=== PATIENT | male | born 1950 | race Caucasian/White ===

== ENCOUNTER 2020-11-16 09:04 | Outpatient (CLI) | payer MEDICARE, SELFPAY ==
--- NOTE | ~2020-11-16 | CT_ITS ---
EXAMINATION: CT diagnostic chest wo con DATE: 11/16/2020 09:22 INDICATION: Prostate cancer, prior smoker TECHNIQUE: Computed tomography (CT) of the chest was performed without intravenous contrast. The dose -length product (DLP) was 338.13 mGy-cm. Automated exposure control and iterative reconstruction tech nique were employed. COMPARISON: None FINDINGS: There is a 6 mm nodule in the right lower lobe on image 68. A 2 mm nodules present in the r ight lower lobe adjacent to the major fissure on image 63. There is a 4 mm nodule in the left lower l obe adjacent to the major fissure on image 49. No focal airspace opacities are identified. There is n o pleural effusion or pneumothorax. There is mild emphysema. Minimal groundglass opacities are presen t in the right upper lobe. No pathologically enlarged thoracic lymph nodes are identified. The heart size is normal. Calcified atherosclerosis is noted. There is a sclerotic lesion in the posterolateral aspect of the right seventh rib. 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 There are h ealed fractures of the left seventh, ninth, and 10th ribs.. IMPRESSION: 1. Right lower lobe nodules which may be, infectious/inflammatory versus metastatic disease. 2. Indeterminate sclerotic right seventh rib lesion. Reviewed, dictated and finalized at location A. NG TACKER IMPRESSION: 1. Right lower lobe nodules which may be, infectious/inflammatory versus metast atic disease. 2. Indeterminate sclerotic right seventh rib lesion.
== END 2020-11-16 09:05 | disposition home or self-care (01) ==
LOC: ANHIMG 09:06
PROVIDERS: PCP Internal Medicine; Visit Provider Urology
DX: C61 Malignant neoplasm of prostate (principal); R91.8 Other nonspecific abnormal finding of lung field
CPT/HCPCS: 71250

== ENCOUNTER → 2022-11-19 12:05 | Outpatient (CLI) | payer MEDICARE, SELFPAY ==
--- NOTE | ~2022-11-19 | DEXA_ITS ---
Bone Density Report Name: CARISSA HERNANDEZ Age: 72 Sex: Male Ethnicity: White Date of : 1950 Indication: screening for osteoporosis; height loss; cancer; Referring Provider: ERASTO TERAN Study: Bone densitometry was performed. Exam Date: November 19, 2022 Accession number: [id number] Bone Density: Region BMD T-score Z-score Classification AP Spine (L1, L2) 1.030 -0.2 0.7 Normal Femoral Neck (Left) 0.824 -0.8 0.5 Normal Total Hip (Left) 1.121 0.6 1.3 Normal Femoral Neck (Right) 0.770 -1.2 0.1 Osteopenia Total Hip (Right) 1.101 0.5 1.2 Normal Total Hip Mean 1.111 0.6 1.3 Normal World Health Organization criteria for BMD impression classify patients as: Normal (T-score at or above -1.0), Osteopenia (T-score between -1.0 and -2.5), or Osteoporosis (T-score at or below -2.5). 10-year Fracture Risk(1): Major Osteoporotic Fracture 5.4% Hip Fracture 1.1% Reported Risk Factors: [place] (), Neck BMD=0.770, BMI=31.4 (1) FRAX(R) Version 3.08. Fracture probability calculated for an untreated patient. Fracture probability may be lower if the patient has received treatment. Clinical Information Provided by Patient: Has used the following medications: Calcium, MTV Has the following medical conditions: Cancer, Prostate ca -2011 pt takes Xtandi medication Patient maximum height was 72.0 No regular weight bearing exercise Drinks caffeinated beverages Impression: The patient has low bone mass, based on the Right Femoral Neck T-score. The patient has an estimated ten-year risk of hip fracture of 1.1% and an estimated ten-year risk of major fracture of 5.4%, based on the WHO FRAX algorithm. Discussion: BONE DENSITY IS LOW AT ONE OR MORE SKELETAL SITES. This patient's lowest T-score is low at one or more skeletal sites. It meets the World Health Organization's (WHO) criteria for ?low bone mass? (T-score between -1.0 and -2.5). The patient's 10-year risk of fracture as calculated by FRAX is less than the threshold where pharmacological therapy is recommended by the National Osteoporosis Foundation (NOF). However, all treatment decisions require clinical judgment and consideration of individual patient factors, including patient preferences, comorbidities, previous drug use, risk factors not captured in the FRAX model (e.g., frailty, falls, vitamin D deficiency, increased bone turnover, interval significant decline in bone density) and possible under or overestimation of fracture risk by FRAX. The patient should follow a healthful lifestyle (good nutrition with adequate calcium and vitamin D, and appropriate weight-bearing exercise). Follow-Up: Consider repeating this study in 2 to 3 years to reassess this patient's status, or sooner if there is some new clinical indication. Reported by: MARGARITO
== END ==
PROVIDERS: PCP Internal Medicine; Visit Provider Nurse Practitioner Adult Health
DX: M85.88 Other specified disorders of bone density and structure, other site (principal); M85.851 Other specified disorders of bone density and structure, right thigh
CPT/HCPCS: 77080

== ENCOUNTER 2022-12-29 01:06 | Day surgery (SDC) | payer MEDICARE, SELFPAY ==
[2022-12-19 10:59] VITALS: BMI 29.3
--- NOTE | 2022-12-27 10:48 | PM.HPGS ---
History of Present Illness History of Present Illness Consent: Risks, benefits, and alternatives have been discussed and questions answered. Patient agrees to proceed with procedure. Chief complaint: other fecal abnormalities, hx of colon polyps Narrative: Juan R John is a 72 year old male Who was referred for colon cancer screening. His last colonoscopy was 14 years ago. He did have a Cologuard test which was negative just over 3 years ago. A more recent 1 was positive. Review of Systems Review of Systems: All systems reviewed & are unremarkable except as noted in HPI and below PMFSH Past Medical History Medical History CAD (coronary artery disease) History of heart attack 2010 History of prostate cancer Hyperlipidemia Surgical History Surgical History History of prostatectomy Family History Family History Father Cerebrovascular accident Acute myocardial infarction Mother Family history of malignant neoplasm Social History Social History Smoking status: Former smoker Tobacco type: cigarettes Alcohol intake: current Drinks per week: 6 Substance use type: does not use Living arrangements: with family Spiritual care concerns: No Meds Home Medications and Allergies Home Medications Medication Instructions Recorded Confirmed Type alendronate 70 mg tablet 70 mg PO WEEKLY 12/19/22 12/29/22 History aspirin 81 mg tablet 81 mg PO DAILY 12/19/22 12/29/22 History atorvastatin 80 mg tablet 80 mg PO HS 12/19/22 12/29/22 History calcium 500 mg tablet 500 mg PO DAILY 12/19/22 12/29/22 History enzalutamide 40 mg tablet (Xtandi) 80 mg PO DAILY 12/19/22 12/29/22 History ezetimibe 10 mg tablet 10 mg PO DAILY 12/19/22 12/29/22 History ferrous sulfate 325 mg (65 mg 325 mg PO DAILY 12/19/22 12/29/22 History iron) tablet magnesium 500 mg tablet 500 mg PO DAILY 12/19/22 12/29/22 History multivitamin with minerals-folic 1 tablet PO DAILY 12/19/22 12/29/22 History acid 0.4 mg tablet pramipexole 1 mg tablet 1 mg PO HS 12/19/22 12/29/22 History Allergies Allergy/AdvReac Type Severity Reaction Status Date / Time No Known Allergies Allergy Verified 12/29/22 10:09 Exam Const: General: alert Orientation/consciousness: patient oriented x3 Resp: Auscultation: clear to auscultation bilaterally Cardio: Rhythm: regular rhythm GI: GI Palp: Yes Soft to palpation and No Tenderness to palpation present (GI) Neuro: General: patient oriented x3 Assessment and Plan Assessment and plan (1) Colon cancer screening: Code(s): Z12.11 - Encounter for screening for malignant neoplasm of colon Status: Acute Assessment and Plan: Colonoscopy with possible biopsy or polypectomy or cautery or injection of substances.
--- NOTE | 2022-12-29 07:18 | P.PNAN_ITS ---
Anes - Initial Pre Proc Eval Procedure: Operation Date: 12/29/22 11:30 Proposed Procedures p Colonoscopy - Spkie Ramirez MD Date/Time: 12/29/22 07:18 Surgeon: Spike Ramirez MD Pre Op Diagnosis: other fecal abnormalities, hx of colon polyps Patient Data Age: 72 Gender: M Height: 1.8 m Weight: 95.5 kg Allergies Allergy/AdvReac Type Severity Reaction Status Date / Time No Known Allergies Allergy Verified 12/29/22 10:09 Home Medications Medication Instructions Recorded Confirmed Type alendronate 70 mg tablet 70 mg PO WEEKLY 12/19/22 12/29/22 History aspirin 81 mg tablet 81 mg PO DAILY 12/19/22 12/29/22 History atorvastatin 80 mg tablet 80 mg PO HS 12/19/22 12/29/22 History calcium 500 mg tablet 500 mg PO DAILY 12/19/22 12/29/22 History enzalutamide 40 mg tablet (Xtandi) 80 mg PO DAILY 12/19/22 12/29/22 History ezetimibe 10 mg tablet 10 mg PO DAILY 12/19/22 12/29/22 History ferrous sulfate 325 mg (65 mg 325 mg PO DAILY 12/19/22 12/29/22 History iron) tablet magnesium 500 mg tablet 500 mg PO DAILY 12/19/22 12/29/22 History multivitamin with minerals-folic 1 tablet PO DAILY 12/19/22 12/29/22 History acid 0.4 mg tablet pramipexole 1 mg tablet 1 mg PO HS 12/19/22 12/29/22 History Patient hx anesthesia problems: none Family hx anesthesia problems: none Results Review: All pre-operative results and documents have been reviewed as part of the pre- operative evaluation. [facility] Past Medical History Medical History (Updated 12/29/22 @ 07:19 by Parveen Lincoln DO) CAD (coronary artery disease) History of heart attack 2010 History of prostate cancer Hyperlipidemia Surgical History Surgical History (Updated 12/29/22 @ 07:19 by Parveen Lincoln DO) History of prostatectomy Family History Family History (Updated 05/04/14 @ 07:13 by DOCTOR UNKNOWN) Father Cerebrovascular accident Acute myocardial infarction Mother Family history of malignant neoplasm Social History Social History Smoking status: Former smoker Tobacco type: cigarettes Alcohol intake: current Drinks per week: 6 Substance use type: does not use Living arrangements: with family Spiritual care concerns: No Anes - Eval Final PreProcedure Day of Procedure 12/29/22 07:18 Patient weight: overweight Heart: regular rate and rhythm Lungs: clear to auscultation Airway: Mallampati scale class II Neurological: alert and oriented Last oral intake: >/= 8 hours ASA classification: III Emergent: no Anesthetic plan: proceed Anesthesia type and monitoring: general GIVS and standard monitoring Results Review: All pre-operative results and documents have been reviewed as part of the pre- operative evaluation. Informed Consent: The patient's anesthetic plan and its attendant risks and benefits were discussed with the patient/family/POA. Questions were solicited and answers provided to the satisfaction of the patient/family/POA.
[2022-12-29 10:12] VITALS: BP 141/78; PULSE 64; RESP 18; TEMP 35.9; O2SAT 99
[2022-12-29] MEDS: LACTATED RINGERS 1,000 ML 150 ML IV CONT (10:25)
[2022-12-29 11:33] VITALS: BP 94/60; PULSE 58; RESP 25; O2SAT 98
[2022-12-29 11:43] VITALS: BP 108/73; PULSE 62; RESP 13; O2SAT 100
[2022-12-29 11:53] VITALS: BP 131/78; PULSE 57; RESP 20; O2SAT 100
== END 2022-12-29 12:12 | disposition home or self-care (01) ==
PROVIDERS: PCP Internal Medicine; Visit Provider Internal Medicine Gastroenterology
PROC: 0DJD8ZZ Inspection of Lower Intestinal Tract, Via Natural or Artificial Opening Endoscopic (ICD-10-PCS; CPT 45378; principal; 2022-12-29 11:30)
DX: Z12.11 Encounter for screening for malignant neoplasm of colon (principal); K57.30 Diverticulosis of large intestine without perforation or abscess without bleeding; R19.5 Other fecal abnormalities; Z86.010 Personal history of colon polyps; I25.10 Atherosclerotic heart disease of native coronary artery without angina pectoris; I25.2 Old myocardial infarction; E78.5 Hyperlipidemia, unspecified; Z85.46 Personal history of malignant neoplasm of prostate; Z87.891 Personal history of nicotine dependence; Z79.82 Long term (current) use of aspirin
CPT/HCPCS: G0105; J2704; J7120

== ENCOUNTER 2023-03-23 10:52 | Outpatient (CLI) | payer MEDICARE, SELFPAY ==
--- NOTE | ~2023-03-23 | PE_ITS ---
EXAMINATION: PET_PETPSMAST_PT DATE: 03/23/2023 13:19 INDICATION: Prostate cancer. TECHNIQUE: 9.128 mCi of piflufolastat F-18 was administered intravenously. Low dose computed tomograp hy (CT) images were acquired from the base of the brain to the proximal thighs for attenuation correc tion and anatomic localization. Automated exposure control was employed. Dose-length product (DLP) wa s 818 mGy-cm. Positron emission tomography (PET) images were acquired in the same distribution. COMPARISON: CT abdomen and pelvis 03/01/2012, chest CT 11/16/2020 FINDINGS: Head/neck: There are no pathologically enlarged lymph nodes. Chest: There is no pneumonia or pleural effusion. Cardiomegaly is noted. No pericardial effusion. The re are no pathologically enlarged lymph nodes. There are old left rib fractures. Abdomen/pelvis/proximal thighs: The liver, gallbladder, spleen, pancreas, adrenal glands, and kidneys are normal. There is calcified atherosclerosis of the aorta and many of the other arteries. There is a right inguinal hernia containing fat. There are changes of left inguinal hernia repair. There is d iverticulosis of the colon without evidence of diverticulitis. There are no dilated loops of bowel. T he appendix is normal. There are no pathologically enlarged lymph nodes. There is no free intraperito vincent fluid. There are changes of prostatectomy. IMPRESSION: 1. No evidence of metastatic disease. Reviewed, dictated and finalized at location A.
== END 2023-03-23 10:53 | disposition home or self-care (01) ==
PROVIDERS: PCP Internal Medicine; Visit Provider Urology
DX: C61 Malignant neoplasm of prostate (principal)
CPT/HCPCS: 78815; A9595

== ENCOUNTER 2023-10-01 09:28 | Emergency (ER) | payer MEDICARE, SELFPAY ==
--- NOTE | ~2023-10-01 | CT_ITS ---
EXAMINATION: CTA BRAIN/CAROTID DATE: 10/01/2023 11:22 INDICATION: Dizziness TECHNIQUE: Computed tomographic angiography (CTA) of the head and neck was performed with 100 mL Omni paque-350 intravenous contrast. Multiplanar reconstructions and maximum intensity projection 3D-recon structions of the carotid arteries and of the intracranial arteries were created by the technologist on a separate workstation. Automated exposure control and iterative reconstruction technique were emp loyed.The dose-length product was 1194.44 mGy-cm. COMPARISON: Head CT dated 10/01/2023 FINDINGS: Carotid arteries: Aortic arch is normal in caliber with small amount of nonhemodynamically significant atherosclerotic plaque which extends into the proximal left subclavian artery. There is a small amount of atheroscler otic plaque with 0% stenosis of the right carotid bulb relative to normal distal artery lumen diamete r (NASCET criteria). There is minimal atherosclerotic plaque with 0% stenosis of the left carotid bul b relative to normal distal artery lumen diameter. Bilateral vertebral arteries are codominant with s mall amounts of nonhemodynamically significant atherosclerotic plaque at the origins of both the left and right vertebral arteries. The upper lungs are clear. Cervical soft tissues and visualized superi or mediastinum are unremarkable. Severe cervical spondylosis. Intracranial arteries Both vertebral arteries are codominant. There is atherosclerotic plaque without hemodynamically signi ficant stenosis at the bilateral intracranial vertebral arteries and the bilateral carotid siphons. T here is no hemodynamically significant stenosis in the vertebral, basilar and internal carotid arteri es. There are no aneurysms identified. Both A1 and P1 segments are patent. Cerebral arterial arbori zation appears symmetric. No abnormally enhancing brain lesions identified. IMPRESSION: 1. Small amount of atherosclerotic plaque with 0% stenosis of the right and left carotid bulbs relati ve to normal distal artery lumen diameter (NASCET criteria). 2. Unremarkable cerebral CT angiogram with small amounts of nonhemodynamically significant atheroscle rotic plaque at the bilateral carotid siphons and vertebral arteries. Reviewed, dictated and finalized at location A. NT TECHNICAL SUPPORT ASSOCIATE IMPRESSION: 1. Small amount of atherosclerotic plaque with 0% stenosis of the right and lef t carotid bulbs relative to normal distal artery lumen diameter (NASCET criteri a). 2. Unremarkable cerebral CT angiogram with small amounts of nonhemodynamically significant atherosclerotic plaque at the bilateral carotid siphons and vertebr al arteries.
--- NOTE | ~2023-10-01 | XR_ITS ---
Clinical Indication: Dizziness AP and lateral views of the chest: Comparison: 03/01/2012 Findings: The lungs are clear, without evidence of focal consolidation or pleural effusion. Cardiome diastinal silhouette is within normal limits. Bones and soft tissues are unremarkable. Impression: Normal chest. Reviewed, dictated and finalized at [facility]. CUTTER Impression: Normal chest.
--- NOTE | ~2023-10-01 | CT_ITS ---
EXAMINATION: CT brain wo con DATE: 10/01/2023 09:48 INDICATION: Dizziness TECHNIQUE: Computed tomography (CT) of the head was performed without intravenous contrast. Sagittal and coronal reconstructions were performed. The mA was adjusted according to patient size. Iterative reconstruction technique was employed. The dose-length product was 605.33 mGy-cm. COMPARISON: None FINDINGS: No acute intracranial hemorrhage, acute infarction or abnormal extra axial fluid collection. Symmetri c prominence of the sulci and and subarachnoid spaces overlying the convexities consistent with mild age-appropriate diffuse cerebral volume loss. Ventricles are normal and symmetric. No mass/mass effe ct. Changes of bilateral intraocular lens replacement. Mild mucosal thickening in the ethmoid sinuses . The orbits and mastoid air cells are normal. Intracranial calcified cerebral atherosclerosis is not ed. IMPRESSION: 1. Normal aging brain. No acute intracranial process. Reviewed, dictated and finalized at location A. ESTATE UTILIZATION OFFICER
[2023-10-01 09:33] VITALS: BP 157/76; PULSE 61; RESP 20; TEMP 36.4; O2SAT 100
--- NOTE | 2023-10-01 09:38 | ECG_ITS ---
Measurements Intervals Prospect Rate: 58 P: 43 SC: 162 QRS: 28 QRSD: 105 T: 27 QT: 444 QTc: 438 Interpretive Statements SINUS BRADYCARDIA BASELINE ARTIFACT- V3 BORDERLINE ECG NO PREVIOUS ECG AVAILABLE FOR COMPARISON Electronically Signed On 10-01-2023 10:34:07 DEVELOPMENT SCIENTIST by Zachary Reese D.O.
[2023-10-01 10:07] LABS: Basophils Absolute Auto 0.1 K/mm3 (0.0-0.1); Basophils Percent Auto 1.2 % (0.2-1.2); Eosinophils Absolute Auto 0.3 K/mm3 (0-0.3); Eosinophils Percent Auto 4.9 % (0-4.4); Hematocrit 41.1 % (42.0-52.0); Hemoglobin 13.3 g/dL (14.0-18.0); Immature Granulocyte Absolute 0.02 K/mm3 (0.00-0.031); Immature Granulocyte Percent A 0.3 % (0-0.5); Lymphocytes Absolute Auto 1.78 K/mm3 (0.9-3.2); Lymphocytes Percent Auto 30.2 % (18.3-44.2); Mean Corpuscular HGB Conc 32.4 g/dl (32-36); Mean Corpuscular Hemoglobin 30.8 pg (26-34); Mean Corpuscular Volume 95.1 fl (80-100); Mean Platelet Volume 8.6 fl (7.4-10.4); Monocytes Absolute Auto 0.4 K/mm3 (0.1-0.6); Monocytes Percent Auto 7.1 % (2.6-8.5); Neutrophils Absolute Auto 3.3 K/mm3 (1.3-6.7); Neutrophils Percent Auto 56.3 % (45.5-73.1); Platelet Count Result 203 k/mm3 (150-375); Red Blood Count 4.32 M/mm3 (4.6-6.20); Red Cell Distribution Width 13.2 % (11.5-14.5); White Blood Count 5.9 K/mm3 (4.5-10.0)
--- NOTE | 2023-10-01 10:09 | ED.DIZZY ---
HPI - Dizziness General Chief Complaint: Dizziness Stated Complaint: dizzy x 1 hour Time Seen by Provider: 10/01/23 09:38 Source: patient Mode of arrival: wheelchair Limitations: no limitations History of Present Illness HPI Narrative: This is a 73-year-old male that presents to the emergency department for dizziness. Ongoing over the last couple of hours. Reports feeling lightheaded and off balance. Reports some nausea. Denies fever, vision changes, vomiting, chest pain, shortness of breath, palpitations, weakness, or numbness. Related Data Home Medications Medication Instructions Recorded Confirmed alendronate 70 mg tablet 70 mg PO WEEKLY 12/19/22 12/29/22 aspirin 81 mg tablet 81 mg PO DAILY 12/19/22 12/29/22 atorvastatin 80 mg tablet 80 mg PO HS 12/19/22 12/29/22 calcium 500 mg tablet 500 mg PO DAILY 12/19/22 12/29/22 enzalutamide 40 mg tablet (Xtandi) 80 mg PO DAILY 12/19/22 12/29/22 ezetimibe 10 mg tablet 10 mg PO DAILY 12/19/22 12/29/22 ferrous sulfate 325 mg (65 mg 325 mg PO DAILY 12/19/22 12/29/22 iron) tablet magnesium 500 mg tablet 500 mg PO DAILY 12/19/22 12/29/22 multivitamin with minerals-folic 1 tablet PO DAILY 12/19/22 12/29/22 acid 0.4 mg tablet pramipexole 1 mg tablet 1 mg PO HS 12/19/22 12/29/22 Allergies Allergy/AdvReac Type Severity Reaction Status Date / Time No Known Allergies Allergy Verified 12/29/22 10:09 Review of Systems Review of Systems: CONSTITUTIONAL: Denies fever EYES: Denies visual changes CARDIOVASCULAR: Denies chest pain, palpitations, or edema. RESPIRATORY: Denies dyspnea. GASTROINTESTINAL: Denies vomiting NEUROLOGIC: Denies headache, numbness, or weakness. All systems reviewed & are unremarkable except as noted in HPI and below PMFSH Past Medical History Medical History CAD (coronary artery disease) History of heart attack 2010 History of prostate cancer Hyperlipidemia Surgical History Surgical History History of prostatectomy Family History Family History Father Cerebrovascular accident Acute myocardial infarction Mother Family history of malignant neoplasm Social History Social History Smoking status: Former smoker Tobacco type: cigarettes Alcohol intake: current Drinks per week: 6 Substance use type: does not use Living arrangements: with family Spiritual care concerns: No Exam Narrative: GENERAL: Well-appearing, well-nourished, and in no acute distress. HEAD: Normocephalic, atraumatic. EYES: PERRLA and EOMI. ENT: Nares clear, no rhinorrhea or epistaxis. Mucous membranes moist. Oropharynx without tonsillar hypertrophy exudate or other lesions. Bilateral TMs pearly sheikh non-bulging NECK: Supple. No adenopathy or masses. No JVD CHEST: Clear to auscultation. No respiratory distress. No wheezes rales or rhonchi HEART: Regular rate and rhythm. No murmur heard. Normal peripheral pulses. ABDOMEN: Soft, nontender, nondistended, normal active bowel sounds. EXTREMITIES: Normal range of motion. No edema. Strength equal in bilateral upper and lower extremities (5/5) SKIN: Warm, dry, no rash. NEURO: No focal deficits. Alert and oriented x3. Cranial nerves 2-12 grossly intact. Normal [id number] PSYCH: Normal mood and affect Course Course Emergency Course: patient resting comfortably. Reports feeling much better after Meclizine and fluids Vital Signs Vital signs: Vital Signs Temperature 97.6 F 10/01/23 09:33 Pulse Rate 61 10/01/23 09:33 Respiratory Rate 20 10/01/23 09:33 Blood Pressure 157/76 H 10/01/23 09:33 Pulse Oximetry 100 10/01/23 09:33 Temperature 97.6 F 10/01/23 09:33 Pulse Rate 55 L 10/01/23 11:48 Respiratory Rate 10/01/23 11:48 Blood Pressure 153/80 H 10/01/23 11:48
[2023-10-01 10:11] VITALS: BP 151/77; BP 160/78; PULSE 57; RESP 17; O2SAT 98
[2023-10-01 10:14] VITALS: BP 142/82
[2023-10-01 10:16] VITALS: BP 150/84; PULSE 62
[2023-10-01 10:17] LABS: Alanine Aminotransferase 33 U/L (6-50); Albumin Level 4.3 g/dL (3.5-5.1); Alkaline Phosphatase 81 U/L (38-126); Anion Gap 5 mmol/L (8-16); Aspartate Amino Transferase 38 U/L (17-59); Bilirubin,Total 0.7 mg/dL (0.2-1.3); Blood Urea Nitrogen 13 mg/dL (9-20); Calcium 9.7 mg/dL (8.4-10.2); Carbon Dioxide 29 mmol/L (22-30); Chloride 106 mmol/L (98-107); Estimated CRCL calculation 86 ml/min; Estimated Glomerular Filt Rate > 60; Glucose 117 mg/dL (65-110); Potassium 4.1 mmol/L (3.4-5.0); Sodium 140 mmol/L (137-145)
[2023-10-01] MEDS: MECLIZINE HCL 25 MG TABLET PO (10:20)
[2023-10-01] MEDS: SODIUM CHLORIDE 0.9% IV 500 ML 999 ML IV CONT (10:21)
[2023-10-01] MEDS: ONDANSETRON INJ 4 MG/2 ML VIAL IV PUSH (10:21)
[2023-10-01 10:31] LABS: Appearance Urine Clear (Clear); Bilirubin Urine Negative (Negative); Blood Urine Negative (Negative); Color Urine Yellow (Yellow); Glucose Urine UA Negative (Negative); Ketones Urine Negative (Negative); Leukocyte Esterase Ur Negative LEU/UL (Negative); Nitrate Urine Negative (Negative); Protein Urine Negative (Negative); Specific Grav Ur 1.008 (1.001-1.035); Urobilinogen Urine 0.2 mg/dL (<2.0); pH Urine 6.5 (5.0-9.0)
[2023-10-01 10:36] LABS: Add Urine Microscopic? NO
[2023-10-01 11:48] VITALS: BP 153/80; PULSE 55; RESP 20; O2SAT 99
[2023-10-01 13:09] VITALS: BP 183/89; PULSE 55; RESP 15; TEMP 36.4; O2SAT 99
== END 2023-10-01 13:11 | disposition home or self-care (01) ==
PROVIDERS: Emergency Provider Physician Assistant; PCP Internal Medicine
DX: R42 Dizziness and giddiness (principal); I25.10 Atherosclerotic heart disease of native coronary artery without angina pectoris; I25.2 Old myocardial infarction; E78.5 Hyperlipidemia, unspecified; Z85.46 Personal history of malignant neoplasm of prostate; Z87.891 Personal history of nicotine dependence; Z90.79 Acquired absence of other genital organ(s); Z79.82 Long term (current) use of aspirin; R00.1 Bradycardia, unspecified
CPT/HCPCS: 36415; 70450; 70496; 70498; 71046; 80053; 81003; 85025; 93005; 96361; 96374; 99284; A9270; J2405; J7040; Q9967

== ENCOUNTER 2025-01-31 10:59 | Outpatient (CLI) | payer MEDICARE, SELFPAY ==
--- NOTE | ~2025-01-31 | DEXA_ITS ---
Bone Density Report Name: CARISSA HERNANDEZ Age: 74 Sex: Male Ethnicity: White Date of : 1950 Indication: screening for osteoporosis; height loss; cancer; Referring Provider: BRANDEN CHILD Study: Bone densitometry was performed. Exam Date: January 31, 2025 Accession number: [id number] Bone Density: Region BMD T-score Z-score Classification AP Spine(L1-L4) 1.230 1.3 2.3 Normal Femoral Neck (Left) 0.813 -0.9 0.5 Normal Total Hip (Left) 1.133 0.7 1.5 Normal Femoral Neck (Right) 0.804 -0.9 0.4 Normal Total Hip (Right) 1.139 0.7 1.5 Normal Total Hip Mean 1.136 0.7 1.5 Normal World Health Organization criteria for BMD impression classify patients as: Normal (T-score at or above -1.0), Osteopenia (T-score between -1.0 and -2.5), or Osteoporosis (T-score at or below -2.5). 10-year Fracture Risk: FRAX not reported because: All T-scores for Spine Total, Hip Total, Femoral Neck at or above -1.0 Previous Exams: -- Region Exam Age BMD T-score BMD Change BMD Change Date g/cm2 vs Baseline vs Previous -- Total Hip(Left) 01/31/2025 74 1.133 0.7 1.1% 1.1% 11/19/2022 72 1.121 0.6 Total Hip(Right) 01/31/2025 74 1.139 0.7 3.4%* 3.4%* 11/19/2022 72 1.101 0.5 -- *Denotes significance at 95% confidence level, LSC for Total Hip = 0.027 g/cm2 Clinical Information Provided by Patient: Has used the following medications: Calcium, Xtandi for Prostate CA Has the following medical conditions: Cancer, Prostate 2011 Patient maximum height was 72 No regular weight bearing exercise Drinks caffeinated beverages Impression: The patient has normal bone mass. No significant bone loss was observed. Discussion: BONE DENSITY IS ABOVE THE MINIMUM DESIRABLE LEVEL AT ALL SKELETAL SITES TESTED. This patient?s bone mineral density is above the minimum desirable level (T-score -1.0 or better) at all sites measured. The patient should follow a healthful lifestyle (good nutrition with adequate calcium and vitamin D, and appropriate weight-bearing exercise). Follow-Up: Consider repeating this study in 5 years or sooner if there is some new clinical indication. Reported by: MARELY on 01/31/2025 11:38:00 AM. Reviewed, dictated and finalized at location A.
== END 2025-01-31 11:00 | disposition home or self-care (01) ==
LOC: MICIMG 11:00
PROVIDERS: PCP Internal Medicine; Visit Provider Urology
DX: M85.88 Other specified disorders of bone density and structure, other site (principal)
CPT/HCPCS: 77080